=== PATIENT | female | born 1990 | race African-American/Black ===

== ENCOUNTER 2018-05-29 21:20 | Emergency (ER) | payer OTHER ==
[~2018-05-29] VITALS: Ht 157.5 cm; Wt 72.6 kg
[2018-05-29] MEDS ORDERED: VENTOLIN HFA 1818 GM (21:28)
[2018-05-29] MEDS ORDERED: PREDNISONE50 MG PO (23:54)
[2018-05-30] MEDS ORDERED: EPIPEN 2-P0.3 MG/0.3 IM (00:03)
[2018-05-30 00:05] VITALS: BP 144/88
== END 2018-05-30 00:06 | disposition home or self-care (01) ==
LOC: M.ERS 21:20
DX: T78.1XXA Other adverse food reactions, not elsewhere classified, initial encounter (principal); R22.0 Localized swelling, mass and lump, head; X58.XXXA Exposure to other specified factors, initial encounter; J45.909 Unspecified asthma, uncomplicated